=== PATIENT | male | born 1975 | race African-American/Black ===

== ENCOUNTER 2019-11-16 10:43 | Inpatient (IN) ==
[2019-11-16 11:42] LABS: Urine Appearance Clear; Urine Bilirubin Negative (Negative); Urine Blood Negative (Negative); Urine Color Yellow; Urine Glucose Negative (Negative); Urine Ketones Negative (Negative); Urine Nitrite Negative (Negative); Urine Protein Negative (Negative); Urine Specific Gravity 1.015 (1.010-1.030); Urine Urobilinogen Negative (Negative)
[2019-11-16 11:45] LABS: Urine Bacteria Absent (Absent); Urine Red Blood Cell Absent (Absent); Urine White Blood Cell 1+(6-10/hpf) (Absent)
[2019-11-16 11:55] LABS: Hematocrit 42 % (42-52); Mean Corpuscular HGB Conc 33 g/dL (31-36); Mean Corpuscular Hemoglobin 32 pg (27-31); Mean Corpuscular Volume 96 fL (80-94); Mean Platelet Volume 7.8 fL (7.4-10.4); Platelet Count 272 10^3/uL (150-450); Red Cell Distribution Width 14 % (10-15); White Blood Count 9.8 10^3/uL (3.5-10.8)
[2019-11-16 11:58] LABS: ABS Eosinophils 0.1 10^3/ul (0-0.6); ABS Lymphocytes 2.5 10^3/ul (1.0-4.8); ABS Monocytes 0.9 10^3/ul (0-0.8); ABS Neutrophils 6.3 10^3/ul (1.5-7.7); Eosinophil % 0.8 %; Lymphocyte % 25.2 %
[2019-11-16 12:04] LABS: Urine Benzodiazepine Screen None Detected (None Detect); Urine Cannabinoids Screen None Detected (None Detect); Urine Opiates Screen None Detected (None Detect)
[2019-11-16 12:24] LABS: ALT 71 U/L (7-52); Albumin 3.7 g/dL (3.2-5.2); Albumin/Globulin Ratio 1.3 (1-3); Alkaline Phosphatase 66 U/L (34-104); BUN/Creatinine Ratio 16.7 (8-20); Blood Urea Nitrogen 16 mg/dL (6-24); CO2 Carbon Dioxide 18 mmol/L (22-32); Calcium 8.3 mg/dL (8.6-10.3); EGFR African American 103.4 (>60); EGFR Non-African American 85.5 (>60); Globulin 2.9 g/dL (2-4); Glucose 118 mg/dL (70-100); Sodium 139 mmol/L (135-145); Total Protein 6.6 g/dL (6.4-8.9)
[2019-11-16 12:27] LABS: Acetaminophen < 15 mcg/mL; Alcohol, S < 10 mg/dL (<10); Salicylate < 2.50 mg/dL (<30)
[2019-11-16 12:43] LABS: Chloride 112 mmol/L (101-111)
[2019-11-16 13:22] LABS: Anion Gap 9 mmol/L (2-11)
[2019-11-16 13:29] LABS: AST 26 U/L (13-39)
[2019-11-16 14:00] LABS: Free T4 0.83 ng/dL (0.61-1.12)
[2019-11-16] MEDS ORDERED: Al Hydrox/Mg Hydrox/Simet LIQ 30 ML UDC PO PRN (14:11)
[2019-11-16] MEDS ORDERED: diPHENhydraMINE 25 mg TAB PO PRN (14:15)
[2019-11-16] MEDS ORDERED: risperiDONE-M 1 mg Oradis TAB PO PRN (14:47)
[2019-11-16] MEDS: Nicotine GUM 2MG FRUIT FLAVOR PO PRN (20:24)
[2019-11-16] MEDS ORDERED: RISPERIDONE 1 MG PO SCH (21:00)
[2019-11-17] MEDS: Nicotine GUM 2MG FRUIT FLAVOR PO PRN ×4 (06:15→21:28)
[2019-11-17] MEDS: Nicotine PATCH 14 MG/24 HR PATCH TRANSDERM SCH (08:04)
[2019-11-17] MEDS ORDERED: oxyCODONE/Acetamin 5/325 mg TAB ONE (15:29)
[2019-11-18 08:40] LABS: HDL Cholesterol 45.9 mg/dL
[2019-11-18] MEDS: Nicotine GUM 2MG FRUIT FLAVOR PO PRN ×3 (09:10→20:37)
[2019-11-18] MEDS: Nicotine PATCH 14 MG/24 HR PATCH TRANSDERM SCH (09:11)
[2019-11-19] MEDS: Nicotine GUM 2MG FRUIT FLAVOR PO PRN ×4 (04:12→21:19)
[2019-11-19] MEDS: Nicotine PATCH 14 MG/24 HR PATCH TRANSDERM SCH (08:56)
[2019-11-19 20:45] VITALS: BP 115/61
[2019-11-19] MEDS ORDERED: diPHENhydraMINE IV 50 MG/ML 1 ml VIAL (BENADRYL) IM PRN (22:40)
[2019-11-19] MEDS ORDERED: Haloperidol 5 mg/ml SDV IV/IM 5 MG/ML AMP IM PRN (22:40)
[2019-11-19] MEDS ORDERED: LORazepam 2 mg VIAL 1 ml IM PRN (22:40)
[2019-11-19] MEDS ORDERED: LORazepam 2 mg VIAL 1 ml ONE (22:50)
[2019-11-19] MEDS ORDERED: diPHENhydraMINE IV 50 MG/ML 1 ml VIAL (BENADRYL) ONE (22:50)
[2019-11-19] MEDS ORDERED: Haloperidol 5 mg/ml SDV IV/IM 5 MG/ML AMP ONE (22:50)
[2019-11-20] MEDS: Nicotine GUM 2MG FRUIT FLAVOR PO PRN (04:10)
[2019-11-20] MEDS: Nicotine PATCH 14 MG/24 HR PATCH TRANSDERM SCH (08:01)
[2019-11-22 19:02] LABS: Variant Hemoglobin 39.9 = Hb S %
== END 2019-11-20 08:00 | DRG 750 ==
LOC: ED 10:43 → BSU 14:11
PROVIDERS: ADMIT Psychiatry & Neurology Psychiatry; ATTEND Psychiatry & Neurology Psychiatry